=== PATIENT | female | born 1985 | race Hispanic/Latino ===

== ENCOUNTER 2017-10-16 08:59 | Emergency (ER) | payer OTHER ==
[~2017-10-16] VITALS: Ht 144.8 cm; Wt 99.8 kg
[2017-10-16] MEDS ORDERED: IBUPROFEN800 M1 PO (09:25)
[2017-10-16] MEDS ORDERED: DOXYCYCLINE HY100 M2 PO (09:25)
--- NOTE | 2017-10-16 09:25 | ED SKIN/ALLERGY COMPLAINT ---
History of Present Illness General Chief Complaint: Skin Rash/ Abcess Stated Complaint: ? ABCESS RT BREAST Source: patient Exam Limitations: no limitations Vital Signs & Intake/Output Vital Signs & Intake/Output Vital Signs Date Time Temp Pulse Resp B/P B/P Pulse O2 O2 Flow FiO2 Mean Ox Delivery Rate 10/16 0902 96.0 80 20 133/81 98 Room Air Allergies Coded Allergies: Penicillins (UNKNOWN 10/16/17) hydromorphone (From DILAUDID) (HIVES 10/16/17) Reconcile Medications Doxycycline Hyclate 100 MG CAPSULE 1 CAP PO BID lump Ibuprofen 800 MG TABLET 1 TAB PO TID pain Triage Note: PT TO ED C/O "LUMP" TO RIGHT BREAST, NOTICED 2 DAYS AGO. STATES SHE CAN FEEL IT WHEN SHE SQUEEZES IT, BUT CAN'T SEE ANYTHING. Triage Nurses Notes Reviewed? yes Onset: Abrupt Duration: day(s):, constant Timing: recent history Severity: moderate, severe Location: right breast No Modifying Factors: none : No Patient currently breastfeeds: No HPI: 32-year-old female comes into the emergency room for further evaluation of lump to the right breast. Patient reports that she had her nipple pierced a few weeks ago. She's noticed a bump lateral to the nipple on the right side. Denies any redness. Denies any drainage. Denies any warmth. Denies any fever chills. She reports some discomfort and pain to it. She comes in for further evaluation. Past History Travel History Traveled to [place] past 21 day No Medical History Any Pertinent Medical History? none Surgical History Surgical History: non-contributory Psychosocial History What is your primary language Marshallese Tobacco Use: Quit >30 days ago ETOH Use: denies use Illicit Drug Use: denies illicit drug use Family History Hx Contributory? No Review of Systems Review of Systems Constitutional: Reports: no symptoms. EENTM: Reports: no symptoms. Respiratory: Reports: no symptoms. Cardiovascular: Reports: no symptoms. GI: Reports: no symptoms. Genitourinary: Reports: no symptoms. Musculoskeletal: Reports: no symptoms. Skin: Reports: see HPI. Neurological/Psychological: Reports: no symptoms. Hematologic/Endocrine: Reports: no symptoms. Immunologic/Allergic: Reports: no symptoms. All Other Systems: Reviewed and Negative Physical Exam Physical Exam General Appearance: well developed/nourished, mild distress Head: atraumatic Eyes: Bilateral: normal appearance. Ears, Nose, Throat: normal ENT inspection, hearing grossly normal Neck: normal inspection Respiratory: no respiratory distress Back: normal inspection Extremities: normal inspection, normal range of motion, no edema Neurologic/Psych: awake, alert, oriented x 3, normal mood/affect Skin: intact Skin Problem Location: 2 cm palpable firm mass lateral to areolar region, no erythema, no drainage, Diagram Chest, Abdomen, Back: 1) Progress Differential Diagnosis: abscess/cellulitis, allergic reaction, contact dermatitis Plan of Care: 10/16/2017 10:16:39 AM Patient clinically looks well. There is currently no suspicion for abscess. Due to fact that she had a recent piercing in that nipple there is concern for potential abscess. There is no warmth redness or drainage. Patient was referred to breast surgeon for outpatient ultrasound and her batteryman. Warm compresses. Started on Keflex in case this is early infection. Patient understands and agrees with plan of care. Departure Departure Disposition: HOME OR SELF CARE Condition: Stable Clinical Impression Primary Impression: Breast lump Referrals: Abram RODNEY,Isaura Mcqueen MD,Chad Marinelli (PCP/Family) Alexandria RODNEY,Maxx John Additional Instructions: Follow-up with breast surgeon provided. Take Keflex and ibuprofen as prescribed. Warm compresses. Return if any redness swelling discharge. Please go over all results of today's visit with your primary care doctor. Contact your primary care doctor to let them know you were here in the emergency room. There may be nonspecific findings which may not be related to your visit today here in the emergency room but may require further evaluation and chronic monitoring by your primary care doctor. If you had a laceration today the chance of foreign body always remains. You should follow-up with your primary care doctor for recheck in 3-5 days for a wound check. If you had an x-ray done there is a chance that a fracture could have been missed on initial read and you should follow-up with your primary care doctor for repeat x-rays if symptoms persist. If your blood pressure was elevated here in the emergency room please have rechecked by [facility] primary care doctor within the next 48. If you were prescribed a narcotic here in the emergency room or any type of controlled substances you're not allowed to drive while taking this medication or operate any type of heavy machinery. Narcotics can make you feel lightheaded dizziness nausea and can cause constipation. You may need to machine pecan picker a stool softener. Thank you for choosing [facility] emergency room. Please return to the emergency room immediately if you have any other concerns worsening of symptoms. Departure Forms: Customer Survey General Discharge Information Prescriptions: Current Visit Scripts Doxycycline Hyclate 1 CAP PO BID #14 CAP Ibuprofen 1 TAB PO TID #30 TAB
== END 2017-10-16 09:39 ==
LOC: ERH 08:59
DX: N63.10 Unspecified lump in the right breast, unspecified quadrant (principal)